=== PATIENT | female | born 2000 | race Caucasian/White ===

== ENCOUNTER → 2022-12-29 09:25 | Outpatient (CLI) | payer OTHER, SELFPAY ==
[2022-12-29 10:30] LABS: Alanine Aminotransferase 17 IU/L (<35); Albumin 4.1 g/dL (3.5-5.0); Albumin Globulin Ratio 1.4 (1.0-2.8); Alkaline Phosphatase 45 U/L (38-126); Aspartate Aminotransferase 23 IU/L (14-36); BUN Creatinine Ratio 24.2 (6-22); Bilirubin Total 0.5 mg/dL (0.2-1.3); Blood Urea Nitrogen 15 mg/dL (7-17); Calcium 9.2 mg/dL (8.4-10.2); Carbon Dioxide 26 mmol/L (22-32); Chloride 104 mmol/L (98-107); Estimated Glomerular Filt Rate > 60 mL/min (>60); Globulin 2.9 g/dL (1.7-4.1); Glucose 88 mg/dL (70-100); HEMOLYSIS < 15 (0-50); Potassium 4.1 mmol/L (3.4-5.1); Sodium 137 mmol/L (137-145)
[2022-12-29 10:58] LABS: TSH w/ Reflex to FT4 0.23 uIU/mL (0.47-4.68)
[2022-12-29 11:27] LABS: Free T4, Direct Thyroxine 1.04 ng/dL (0.78-2.19)
[2023-01-13 15:51] LABS: Percent Free Testosterone 0.99 % (0.50-2.80); Testosterone Free 0.24 ng/dL (0.10-0.85)
== END ==
PROVIDERS: PCP Family Medicine; Referring Provider Family Medicine; Visit Provider Family Medicine
DX: E66.3 Overweight (principal); F41.9 Anxiety disorder, unspecified; I49.9 Cardiac arrhythmia, unspecified
CPT/HCPCS: 36415; 80053; 84402; 84403; 84439; 84443

== ENCOUNTER → 2023-01-19 11:10 | Outpatient (CLI) | payer OTHER, SELFPAY ==
[2023-01-19 11:54] LABS: Add Manual Diff / Slide Review NO; Basophils Absolute Auto 0 /uL (0-100); Basophils Percent Auto 0.5 % (0-2); Eosinophils Absolute Auto 200 /uL (0-450); Hematocrit 40.9 % (36-46); Hemoglobin 13.9 g/dL (12.0-16.0); Lymphocytes Absolute Auto 1700 /uL (1100-4500); Lymphocytes Percent Auto 20.5 % (25-40); Mean Corpuscular Volume 91.1 fL (80-100); Monocytes Absolute Auto 600 /uL (0-900); Monocytes Percent Auto 7.2 % (3-14); Neutrophils Absolute Auto 5800 /uL (1500-7000); Neutrophils Percent Auto 69.8 % (50-75); Platelet Count 362 X10^3/uL (150-400); Red Cell Distribution Width 12.5 % (11.6-14.8); White Blood Cell Count 8.4 X10^3/uL (4.5-11.0)
[2023-01-19 13:43] LABS: Vitamin B12 715 pg/mL (239-931)
[2023-01-19 16:33] LABS: Vitamin D 25 Hydroxy (D3) 32.2 ng/mL (30.0-100.0)
== END ==
PROVIDERS: PCP Family Medicine; Referring Provider Family Medicine; Visit Provider Family Medicine
DX: R53.83 Other fatigue (principal)
CPT/HCPCS: 36415; 82306; 82607; 85025

== ENCOUNTER 2023-05-29 13:51 | Emergency (ER) | payer OTHER, SELFPAY ==
[2023-05-29 13:53] VITALS: BP 143/91; PULSE 67; RESP 16; TEMP 36.9; O2SAT 97; BMI 26.6
--- NOTE | 2023-05-29 13:58 | DI.RAD.S_ITS ---
PROCEDURE: XR FOREARM RT 2V INDICATIONS: fall, hit elbow on rock, swelling/pain TECHNIQUE: 2 views of the forearm were acquired. COMPARISON: [facility], CR, XR ELBOW RT MIN 3V, 05/29/2023, 14:10. FINDINGS: Bones: No fractures or dislocations. No suspicious bony lesions. Soft tissues: No suspicious soft tissue calcifications or masses. IMPRESSION: Normal plain films. Dictated by: Carlos West M.D. on 05/29/2023 at 13:24 Approved by: Carlos West M.D. on 05/29/2023 at 13:24
--- NOTE | 2023-05-29 13:58 | DI.RAD.S_ITS ---
PROCEDURE: XR ELBOW RT MIN 3V INDICATIONS: fall, hit elbow on rock, swelling/pain TECHNIQUE: 3 views of the elbow were acquired. COMPARISON: [facility], CR, XR FOREARM RT 2V, 05/29/2023, 14:10. FINDINGS: Bones: No fractures or dislocations. No suspicious bony lesions. Soft tissues: No elbow joint effusion. No suspicious soft tissue calcifications. IMPRESSION: Elbow plain film study within normal limits. Dictated by: Carlos West M.D. on 05/29/2023 at 13:25 Approved by: Carlos West M.D. on 05/29/2023 at 13:25
--- NOTE | 2023-05-29 14:31 | ED_ITS ---
HPI - Fall General Chief Complaint: Fall Stated Complaint: R/ELBOW possibly broken Time Seen by Provider: 05/29/23 14:28 History of Present Illness HPI Narrative: 23-year-old female presents for evaluation of right elbow pain. Patient was hiking when she tripped and fell, and she landed on her right elbow on a rock. Reports pain to the posterior aspect of her right elbow and stinging sensation that shoots from her elbow down to her hand. No medications taken prior to arrival. Patient states that she is up-to-date on her tetanus shot. Related Data Home Medications Medication Instructions Recorded Confirmed aripiprazole 5 mg tablet (Abilify) 2.5 mg PO DAILY 11/24/22 01/19/23 gabapentin 400 mg capsule 400 mg PO .qd PRN 12/29/22 01/19/23 lorazepam 0.5 mg tablet 0.5 mg PO PRN anxiety 12/29/22 01/19/23 propranolol 20 mg tablet 40 mg PO .QD 12/29/22 01/19/23 Allergies Allergy/AdvReac Type Severity Reaction Status Date / Time bupropion [From Wellbutrin] Allergy Severe nervous Verified 01/19/23 10:26 break down Review of Systems Review of Systems Narrative: All others negative except as marked Musculoskeletal Comments: Reports: Right elbow pain, right elbow swelling Integumentary/Breasts Comments: Reports: Abrasion, right elbow Patient History Medical History (Updated 05/29/23 @ 14:33 by Jo Roy MD) Ankle fracture (~2004) Anxiety (~2014) Bipolar 1 disorder Cardiac arrhythmia Chicken pox Concussion Depression GERD (gastroesophageal reflux disease) Heavy menstrual period Scoliosis Shingles (~2005) Wears glasses Surgical History (Updated 08/25/21 @ 11:46 by Griffin Dahl MD) Anesthesia History of cardiac radiofrequency ablation Family History (Updated 08/23/21 @ 22:11 by Adela Kothari) Father History of heart disease Mental health problem Mother History of heart disease Hypertension Mental health problem Sister Overdose Grandfather History of heart disease Grandmother History of heart disease Grandfather Diabetes mellitus History of heart disease Hyperlipidemia Hypertension Grandmother History of heart disease Social History Smoking Status: Never smoker Smoking Status: Never smoker Exam Initial Vital Signs Initial Vital Signs: Vital Signs Temperature 98.4 F 05/29/23 13:53 Pulse Rate 67 05/29/23 13:53 Respiratory Rate 16 05/29/23 13:53 Blood Pressure 143/91 H 05/29/23 13:53 Pulse Oximetry 97 05/29/23 13:53 Oxygen Delivery Method Room Air 05/29/23 13:53 Const: Well-nourished, Well-developed, appears stated age Eyes: PERRL, EOMI, conjunctiva normal ENT: Atraumatic, dentition normal, mucous membranes moist Cardiac: regular rate, regular rhythm RESP: unlabored, clear bilaterally, no wheezing GI: Atraumatic, soft, nontender, nondistended, no rebound, no guarding MSK: Contusion posterior elbow, minimal swelling, tenderness over the right olecranon, full range of motion, pulses intact, 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 She does have a contusion to her forearm/posterior elbow, however radiographs show no acute fracture. 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 Patient was counseled on rice instructions. ED return precautions discussed at bedside. Patient expressed understanding of the plan and is in agreement at this time. All questions answered at the time of discharge. Orders Ordered: ED Orders 05/29/23 13:58 XR elbow RT min 3V Stat XR forearm RT 2V Stat Vital Signs Vital signs: Vital Signs - 8 hr 05/29/23 13:53 Temperature 98.4 F Pulse Rate 67 Respiratory Rate 16 Blood Pressure 143/91 H Pulse Oximetry 97 Oxygen Delivery Method Room Air Discharge Plan Departure Patient Disposition: Home Clinical Impression: Contusion of elbow and forearm Instructions: DI for Contusion Activity Restrictions/Additional Instructions: APPLY ICE TO YOUR ELBOW AND FOREARM, THIS WILL HELP THE BRUISING AND SWELLING. TAKE TYLENOL AND MOTRIN NEEDED FOR PAIN. ELEVATING YOUR FOREARM AND ELBOW WILL ALSO HELP WITH THE SWELLING. Prescriptions: No Action aripiprazole [Abilify] 5 mg tablet 2.5 mg PO DAILY gabapentin 400 mg capsule 400 mg PO .qd PRN lorazepam 0.5 mg tablet 0.5 mg PO PRN (Reason: anxiety) Patient Comments: Take 1/2 to 1 tablet by mouth once a day as needed for severe anxiety propranolol 20 mg tablet 40 mg PO .QD Referrals: Griffin Dahl MD [Primary Care Provider] - Stand Alone Forms: Patient Portal/API
== END 2023-05-29 14:36 | disposition home or self-care (01) ==
PROVIDERS: Emergency Provider Emergency Medicine; PCP Family Medicine
DX: S50.11XA Contusion of right forearm, initial encounter (principal); W01.198A Fall on same level from slipping, tripping and stumbling with subsequent striking against other object, initial encounter
CPT/HCPCS: 73080; 73090; 99283

== ENCOUNTER → 2023-06-02 14:03 | Outpatient (CLI) | payer OTHER, SELFPAY ==
[2023-06-03 20:07] LABS: Deamidated Gliadin Ab IgA 6 units (0-19); Deamidated Gliadin Ab IgG 1 units (0-19); Immunoglobulin A,Qn 312 mg/dL (87-352); t-Transglutaminase IgA <2 U/mL (0-3)
== END ==
PROVIDERS: PCP Family Medicine; Referring Provider Family Medicine; Visit Provider Family Medicine
DX: K90.41 Non-celiac gluten sensitivity (principal); R14.0 Abdominal distension (gaseous); R53.83 Other fatigue
CPT/HCPCS: 36415; 82784; 83516; 86003

== ENCOUNTER → 2023-07-08 08:45 | Outpatient (CLI) | payer OTHER, SELFPAY | PROVIDERS: PCP Family Medicine; Referring Provider Family Medicine; Visit Provider Family Medicine | DX: Z23 Encounter for immunization (principal) | CPT/HCPCS: 90471; 90686 ==

== ENCOUNTER → 2023-09-23 13:53 | Outpatient (CLI) | payer OTHER, SELFPAY ==
[2023-09-23 14:24] LABS: Add Manual Diff / Slide Review NO; Basophils Absolute Auto 100 /uL (0-100); Basophils Percent Auto 0.8 % (0-2); Eosinophils Absolute Auto 300 /uL (0-450); Eosinophils Percent Auto 3.8 % (2-4); Hematocrit 38.4 % (36-46); Hemoglobin 13.2 g/dL (12.0-16.0); Lymphocytes Absolute Auto 2100 /uL (1100-4500); Lymphocytes Percent Auto 28.4 % (25-40); Mean Corpuscular HGB Conc 34.3 % (30-36); Mean Corpuscular Hemoglobin 31.3 PG (26-34); Mean Corpuscular Volume 91.4 fL (80-100); Monocytes Absolute Auto 500 /uL (0-900); Monocytes Percent Auto 6.4 % (3-14); Neutrophils Absolute Auto 4500 /uL (1500-7000); Neutrophils Percent Auto 60.6 % (50-75); Platelet Count 399 X10^3/uL (150-400); Red Cell Distribution Width 12.4 % (11.6-14.8); White Blood Cell Count 7.4 X10^3/uL (4.5-11.0)
[2023-09-23 14:43] LABS: Alanine Aminotransferase 16 IU/L (<35); Albumin 4.2 g/dL (3.5-5.0); Albumin Globulin Ratio 1.3 (1.0-2.8); Alkaline Phosphatase 47 U/L (38-126); Aspartate Aminotransferase 25 IU/L (14-36); BUN Creatinine Ratio 22.2 (6-22); Bilirubin Total 0.3 mg/dL (0.2-1.3); Blood Urea Nitrogen 16 mg/dL (7-17); Calcium 9.8 mg/dL (8.4-10.2); Carbon Dioxide 27 mmol/L (22-32); Chloride 101 mmol/L (98-107); Estimated Glomerular Filt Rate > 60 mL/min (>60); Globulin 3.2 g/dL (1.7-4.1); Glucose 84 mg/dL (70-100); HEMOLYSIS < 15 (0-50); Potassium 3.9 mmol/L (3.4-5.1); Sodium 136 mmol/L (137-145); Total Protein 7.4 g/dL (6.3-8.2)
[2023-09-23 14:59] LABS: Prolactin 9.6 ng/mL (3.0-18.6)
[2023-09-23 15:13] LABS: TSH w/ Reflex to FT4 1.43 uIU/mL (0.47-4.68)
[2023-09-23 15:26] LABS: Follicle Stimulating Hormone 4.43 mIU/mL; Luteinizing Hormone 5.61 mIU/mL
== END ==
PROVIDERS: PCP Family Medicine; Referring Provider Family Medicine; Visit Provider Family Medicine
DX: N92.0 Excessive and frequent menstruation with regular cycle (principal)
CPT/HCPCS: 36415; 80053; 83001; 83002; 84146; 84443; 85025

== ENCOUNTER → 2023-10-01 15:57 | Outpatient (CLI) | payer OTHER, SELFPAY ==
--- NOTE | 2023-10-01 16:01 | DI.RAD.S_ITS ---
PROCEDURE: XR FOOT RT MIN 3V INDICATIONS: Right foot injury-1st metatarsal TECHNIQUE: 3 views of the foot were acquired. COMPARISON: None. FINDINGS: Bones: In this patient with this given history, scrutiny is given to 1st metatarsal. No fractures or dislocations can be seen at this site. No fractures or dislocations are seen elsewhere. No suspicious bony lesions. Soft tissues: No tibiotalar joint effusion. Achilles tendon appears normal. IMPRESSION: No displaced fractures are seen on these plain films. If there is focal tenderness, or other clinical concern for a fracture not seen on these images in this patient with a given history of trauma, please consider a dedicated CT or a short-term followup plain film series (in 1-2 weeks) for further evaluation. Dictated by: Carlos West M.D. on 10/01/2023 at 15:26 Approved by: Carlos West M.D. on 10/01/2023 at 15:27
== END ==
LOC: DI 16:00
PROVIDERS: PCP Family Medicine; Referring Provider Registered Nurse; Visit Provider Registered Nurse
DX: M79.671 Pain in right foot (principal)
CPT/HCPCS: 73630

== ENCOUNTER 2024-01-04 14:52 | Emergency (ER) | payer OTHER, SELFPAY ==
[2024-01-04] VITALS (7 sets, daily range): BP systolic 112–136; BP diastolic 66–73; PULSE 73–97; RESP 18; TEMP 36.8; O2SAT 97–100; BMI 26.6
[2024-01-04 17:32] LABS: Bacteria Urine None Seen; Culture Indicated Urine Cult Not Indicated; RBC Urine None Seen (0-5/HPF); Squamous Epithelial Cell Urine 0-1 /HPF (0-5/HPF); Urine Volume 10mL (spun); WBC Urine None Seen (0-5/HPF)
[2024-01-04 18:22] LABS: Hematocrit 36.9 % (36-46); Hemoglobin 12.4 g/dL (12.0-16.0); Mean Corpuscular HGB Conc 33.7 % (30-36); Mean Corpuscular Hemoglobin 30.2 PG (26-34); Mean Corpuscular Volume 89.6 fL (80-100); Platelet Count 348 X10^3/uL (150-400); Red Blood Cell Count 4.12 X10^6/uL (4.0-5.2); White Blood Cell Count 8.5 X10^3/uL (4.5-11.0)
[2024-01-04 18:23] LABS: Add Manual Diff / Slide Review YES
[2024-01-04 18:37] LABS: Alanine Aminotransferase 158 IU/L (<35); Albumin 4.3 g/dL (3.5-5.0); Albumin Globulin Ratio 1.2 (1.0-2.8); Alkaline Phosphatase 71 U/L (38-126); Aspartate Aminotransferase 125 IU/L (14-36); Bilirubin Total 0.5 mg/dL (0.2-1.3); Blood Urea Nitrogen 4 mg/dL (7-17); Calcium 9.4 mg/dL (8.4-10.2); Carbon Dioxide 25 mmol/L (22-32); Chloride 106 mmol/L (98-107); Estimated Glomerular Filt Rate > 60 mL/min (>60); Globulin 3.5 g/dL (1.7-4.1); Glucose 85 mg/dL (70-100); HEMOLYSIS < 15 (0-50); Lipase 52 U/L (23-300); Potassium 3.5 mmol/L (3.4-5.1); Sodium 137 mmol/L (137-145); Total Protein 7.8 g/dL (6.3-8.2)
--- NOTE | 2024-01-04 18:41 | DI.US.S_ITS ---
PROCEDURE: US ABDOMEN LIMITED INDICATIONS: RUQ pain eval for GB pathology TECHNIQUE: Real-time focused scanning was performed of the abdomen, with image documentation. COMPARISON: [facility], CT, CT ABDOMEN PELVIS WITH CONTRAST, 08/04/2021, 13:01. FINDINGS: Liver measures 13.7 cm. Gallbladder demonstrates no stones. Wall thickness measures 1 mm. Common bile duct measures 3.5 mm. IMPRESSION: Unremarkable. Dictated by: Cindy Saldaña M.D. on 01/04/2024 at 19:49 Approved by: Cindy Saldaña M.D. on 01/04/2024 at 19:50
[2024-01-04 18:42] LABS: Neutrophils Absolute Manual 2040 /uL (3000-5900); Reactive Lymphocytes 1+; Total Cells Counted 100
--- NOTE | 2024-01-04 18:48 | ED.GENADULT ---
HPI - General Adult General Chief complaint: Abdominal Pain Stated complaint: liver pain w elevated enzymes/mono. Time Seen by Provider: 01/04/24 17:21 Source: patient Mode of arrival: Ambulatory History of Present Illness HPI narrative: Patient is a 23-year-old female. Was diagnosed with mono within the past 1-2 days however she has had symptoms consistent with a mild over the past couple weeks. She was here today for right upper quadrant abdominal pain. She was seen recently at walk-in clinic. Had labs drawn. Was shown the had an elevation in her LFTs and because of the discomfort that she is having she was sent to the emergency department for further evaluation. Is having quite a bit of fatigue, occasional fevers, nausea, no change in bowel habits or urinary symptoms. Related Data Home Medications Medication Instructions Recorded Confirmed aripiprazole 5 mg tablet (Abilify) 2.5 mg PO DAILY 11/24/22 01/02/24 gabapentin 400 mg capsule 400 mg PO .qd PRN 12/29/22 01/02/24 propranolol 20 mg tablet 40 mg PO .QD 12/29/22 01/02/24 Previous Rx's Medication Instructions Recorded ondansetron 4 mg disintegrating 4 mg PO Q8H #30 tabs 09/21/23 tablet Allergies Allergy/AdvReac Type Severity Reaction Status Date / Time No Known Drug Allergies Allergy Verified 01/02/24 18:39 Review of Systems Review of Systems ROS Unobtainable: All systems reviewed & are unremarkable except as noted in HPI and below Patient History Medical History Bipolar 1 disorder Wears glasses Ankle fracture (~2004) Concussion Scoliosis Shingles (~2005) Chicken pox Heavy menstrual period GERD (gastroesophageal reflux disease) Cardiac arrhythmia Surgical History Anesthesia History of cardiac radiofrequency ablation Family History Father History of heart disease Mental health problem Mother History of heart disease Hypertension Mental health problem Sister Overdose Grandfather History of heart disease Grandmother History of heart disease Grandfather Diabetes mellitus History of heart disease Hyperlipidemia Hypertension Grandmother History of heart disease Social History Smoking Status: Never smoker Smoking Status: Never smoker alcohol intake frequency: holidays/special occasions only Substance Use Type: does not use Exam Initial Vital Signs Initial Vital Signs: Vital Signs Temperature 98.3 F 01/04/24 15:12 Pulse Rate 97 H 01/04/24 15:12 Respiratory Rate 18 01/04/24 15:12 Blood Pressure 136/72 01/04/24 15:12 Pulse Oximetry 98 01/04/24 15:12 Oxygen Delivery Method Room Air 01/04/24 15:12 Resp Effort & Inspection: normal respiratory effort Cardio Rate: regular rate GI Inspection: normal to inspection and non-distended Palpation: soft, No firm, No guarding and tender (Right upper quadrant negative Simpson's sign) Skin General: no rashes or lesions noted Neuro General: patient alert and patient awake Course Orders Ordered: ED Orders 01/04/24 16:14 Urine Microscopic Stat 01/04/24 18:06 Complete Blood Count AUTO DIFF Stat Comprehensive Metabolic Panel Stat Lipase Stat 01/04/24 18:41 US abdomen limited Stat Discontinued Medications Ketorolac Tromethamine (Ketorolac 30 Mg/Ml Vial) 30 mg IV NOW ONE Stop: 01/04/24 19:50 Last Admin: 01/04/24 19:53 Dose: 30 mg Documented By: HELENA Ondansetron HCl (Ondansetron 4 Mg Odt) 4 mg PO NOW PRN PRN Reason: Nausea And Vomiting Ondansetron HCl (Ondansetron 4 Mg/2 Ml Inj) 4 mg IV NOW PRN PRN Reason: Nausea And Vomiting Vital Signs Vital signs: Vital Signs - 8 hr 01/04/24 18:09 01/04/24 18:10 01/04/24 18:10 Pulse Rate 78 Blood Pressure 113/73 Pulse Oximetry 100 98 01/04/24 18:30 01/04/24 18:31 01/04/24 18:31 Pulse Rate 77 73 Blood Pressure 112/66 Pulse Oximetry 98 97 01/04/24 19:00 01/04/24 19:00 01/04/24 19:30 Pulse Rate 78 80 Blood Pressure 112/72 Pulse Oximetry 98 97 01/04/24 19:30 Pulse Rate Blood Pressure 114/69 Pulse Oximetry Medical Decision Making Lab Data Lab results reviewed: Yes I reviewed the patient's lab results. 01/04/24 18:06 01/04/24 18:06 Labs: Lab Results 01/04/24 01/04/24 Range/Units 16:14 18:06 WBC 8.5 (4.5-11.0) X10^3/uL RBC 4.12 (4.0-5.2) X10^6/uL Hgb 12.4 (12.0-16.0) g/dL Hct 36.9 (36-46) % MCV 89.6 (80-100) fL MCH 30.2 (26-34) PG MCHC 33.7 (30-36) % RDW 13.0 (11.6-14.8) % Plt Count 348 (150-400) X10^3/uL Neut % (Auto) Not Reportable Lymph % (Auto) Not Reportable Mayes % (Auto) Not Reportable Eos % (Auto) Not Reportable Baso % (Auto) Not Reportable Lymph # (Auto) Not Reportable Mayes # (Auto) Not Reportable Baso # (Auto) Not Reportable Total Counted 100 Seg Neutrophils % 24.0 L (38-70) % Lymphocytes % (Manual) 70.0 H (25-45) % Monocytes % (Manual) 4.0 (2-11) % Eosinophils % (Manual) 1.0 L (2-4) % Basophils % (Manual) 1.0 (0-1) % Neutrophils # (Manual) 2040 L (7332-4682) /uL Reactive Lymphocytes 1+ H RBC Morphology See below Sodium 137 (137-145) mmol/L Potassium 3.5 (3.4-5.1) mmol/L Chloride 106 (98-107) mmol/L Carbon Dioxide 25 (22-32) mmol/L BUN 4 L (7-17) mg/dL Creatinine 0.57 (0.52-1.04) mg/dL Estimated GFR > 60 (>60) mL/min BUN/Creatinine Ratio 7.0 (6-22) Glucose 85 (70-100) mg/dL Calcium 9.4 (8.4-10.2) mg/dL Total Bilirubin 0.5 (0.2-1.3) mg/dL AST 125 H (14-36) IU/L ALT 158 H (<35) IU/L Alkaline Phosphatase 71 (38-126) U/L Total Protein 7.8 (6.3-8.2) g/dL Albumin 4.3 (3.5-5.0) g/dL Globulin 3.5 (1.7-4.1) g/dL Albumin/Globulin Ratio 1.2 (1.0-2.8) Lipase 52 (23-300) U/L Urine RBC None seen (0-5/HPF) Urine WBC None seen (0-5/HPF) Ur Squamous Epith Cells 0-1 /hpf (0-5/HPF) Urine Bacteria None seen (None) Ur Culture Indicated? Cult not indicated Vol Urine Centrifuged 10ml (spun) Point of Care Testing Test Results Negative Urine Dip Bedside Urine Glucose Negative Bedside Urine Bilirubin - Negative Bedside Urine Ketone - Negative Urine Specific [place] 1.005 Bedside Urine Occult Blood +++ Bedside Urine pH 6.0 Bedside Urine Protein - Negative Bedside Urine Urobilinogen - Negative Bedside Urine Nitrite - Negative Bedside Urine Leukocytes - Negative Esterase Point of care testing: Point of Care Testing Test Results Negative Urine Dip Bedside Urine Glucose Negative Bedside Urine Bilirubin - Negative Bedside Urine Ketone - Negative Urine Specific [place] 1.005 Bedside Urine Occult Blood +++ Bedside Urine pH 6.0 Bedside Urine Protein - Negative Bedside Urine Urobilinogen - Negative Bedside Urine Nitrite - Negative Bedside Urine Leukocytes - Negative Esterase Imaging Data US - abdomen: Radiologist's Impression: PROCEDURE: US ABDOMEN LIMITED INDICATIONS: RUQ pain eval for GB pathology TECHNIQUE: Real-time focused scanning was performed of the abdomen, with image documentation. COMPARISON: [facility], CT, CT ABDOMEN PELVIS WITH CONTRAST, 08/04/2021, 13:01. FINDINGS: Liver measures 13.7 cm. Gallbladder demonstrates no stones. Wall thickness measures 1 mm. Common bile duct measures 3.5 mm. IMPRESSION: Unremarkable. [facility] Narrative Medical decision making narrative: Patient does have a benign abdominal exam. She does not have splenomegaly on my exam. Has a slight elevation in her LFTs but a normal lipase. Right upper quadrant ultrasound shows no signs of gallbladder pathology. Provided reassurance to the patient. Informed her that she needs to contact her primary doctor for a follow-up to discuss retesting these enzymes for trending. Patient can be safely discharged home. No indication for admission to the hospital. Discharge Plan Departure Patient Disposition: Home Clinical Impression: Transaminitis Activity Restrictions/Additional Instructions: Continue to take Tylenol for any fevers or body aches. You do need follow-up with your primary care doctor for repeat lab tests in a couple weeks from now. Return to the emergency department for new symptoms. Prescriptions: No Action ondansetron 4 mg tablet,disintegrating 4 mg PO Q8H Qty: 30 1RF aripiprazole [Abilify] 5 mg tablet 2.5 mg PO DAILY gabapentin 400 mg capsule 400 mg PO .qd PRN propranolol 20 mg tablet 40 mg PO .QD Referrals: Delaney Nguyen MD [Primary Care Provider] - Stand Alone Forms: Patient Portal/API
[2024-01-04] MEDS: KETOROLAC 30 MG/ML VIAL IV (19:53)
== END 2024-01-04 20:23 | disposition home or self-care (01) ==
PROVIDERS: Emergency Medicine; Emergency Provider Emergency Medicine; PCP Family Medicine
DX: R74.01 Elevation of levels of liver transaminase levels (principal)
CPT/HCPCS: 36415; 76705; 80053; 81003; 81015; 81025; 83690; 85007; 85025; 96374; 99284; J1885

== ENCOUNTER → 2024-07-02 | Outpatient (CLI) | payer OTHER, SELFPAY | PROVIDERS: PCP Family Medicine; Referring Provider Internal Medicine; Visit Provider Internal Medicine | DX: Z23 Encounter for immunization (principal) | CPT/HCPCS: 90471; 90656 ==

== ENCOUNTER → 2024-10-26 08:09 | Outpatient (CLI) | payer OTHER, SELFPAY ==
--- NOTE | 2024-10-26 08:10 | DI.MRI.S_ITS ---
PROCEDURE: MR HEAD/BRAIN WO CON INDICATIONS: Memory loss TECHNIQUE: Noncontrast axial T1 spin echo, axial T2 fast spin echo, sagittal and axial FLAIR, coronal T2 fast spin echo, axial gradient echo, axial diffusion and ADC through the brain. COMPARISON: None. FINDINGS: Image quality: Excellent. CSF Spaces: Basal cisterns are patent. No extra-axial fluid collections. Ventricles are normal in size and shape. Brain: No intracranial masses or hemorrhage. Elizabeth/white matter interface is normal. Brainstem appears normal. Diffusion-weighted images demonstrate no acute infarct. No chronic ischemic insults. Normal intravascular flow voids are present. Skull and face: Calvarium has normal marrow signal. Orbits appear normal. Sinuses: Sinuses and mastoids are clear. IMPRESSION: No cause for patient's symptoms identified. Normal appearance of the brain. Dictated by: Nathan Grant M.D. on 10/26/2024 at 15:43 Approved by: Nathan Grant M.D. on 10/26/2024 at 15:50
[2024-10-26 09:49] LABS: Add Manual Diff / Slide Review NO; Basophils Absolute Auto 100 /uL (0-100); Basophils Percent Auto 0.6 % (0-2); Eosinophils Absolute Auto 200 /uL (0-450); Eosinophils Percent Auto 2.5 % (2-4); Hematocrit 38.9 % (36-46); Hemoglobin 13.1 g/dL (12.0-16.0); Lymphocytes Absolute Auto 2100 /uL (1100-4500); Lymphocytes Percent Auto 21.2 % (25-40); Mean Corpuscular HGB Conc 33.6 % (30-36); Mean Corpuscular Hemoglobin 30.7 PG (26-34); Mean Corpuscular Volume 91.2 fL (80-100); Monocytes Absolute Auto 400 /uL (0-900); Monocytes Percent Auto 4.2 % (3-14); Neutrophils Absolute Auto 7000 /uL (1500-7000); Neutrophils Percent Auto 71.5 % (50-75); Platelet Count 377 X10^3/uL (150-400); Red Blood Cell Count 4.27 X10^6/uL (4.0-5.2); Red Cell Distribution Width 12.9 % (11.6-14.8); White Blood Cell Count 9.7 X10^3/uL (4.5-11.0)
[2024-10-26 10:03] LABS: Alanine Aminotransferase 26 IU/L (<35); Albumin 4.5 g/dL (3.5-5.0); Albumin Globulin Ratio 1.7 (1.0-2.8); Alkaline Phosphatase 62 U/L (38-126); Aspartate Aminotransferase 31 IU/L (14-36); BUN Creatinine Ratio 12.7 (6-22); Bilirubin Total 0.3 mg/dL (0.2-1.3); Blood Urea Nitrogen 10 mg/dL (7-17); Calcium 9.8 mg/dL (8.4-10.2); Carbon Dioxide 23 mmol/L (22-32); Chloride 106 mmol/L (98-107); Estimated Glomerular Filt Rate > 60 mL/min (>60); Globulin 2.6 g/dL (1.7-4.1); Glucose 79 mg/dL (70-100); HEMOLYSIS < 15 (0-50); Potassium 3.9 mmol/L (3.4-5.1); Sodium 137 mmol/L (137-145); Total Protein 7.1 g/dL (6.3-8.2)
[2024-10-26 10:33] LABS: TSH w/ Reflex to FT4 1.91 uIU/mL (0.47-4.68)
== END ==
PROVIDERS: PCP Family Medicine; Referring Provider Family Medicine; Visit Provider Family Medicine
DX: R41.3 Other amnesia (principal); N92.0 Excessive and frequent menstruation with regular cycle; I49.9 Cardiac arrhythmia, unspecified
CPT/HCPCS: 36415; 70551; 80053; 84443; 85025

== ENCOUNTER → 2024-12-21 10:47 | Outpatient (CLI) | payer OTHER, SELFPAY ==
[2024-12-23 14:11] LABS: Dilute Russell Viper Venom 32.6 sec (0.0-47.0); Lupus Reflex Interpretation Comment: (.); PTT-LA 34.6 sec (0.0-43.5)
[2024-12-24 16:11] LABS: B2-Glycoprotein I IgA AB < 9 (0-25); B2-Glycoprotein I IgG AB < 9 (0-20); B2-Glycoprotein I IgM AB < 9 (0-32)
[2024-12-24 16:36] LABS: Cardiolipin Ab IgA <9 APL U/mL (0-11); Cardiolipin Ab IgG <9 GPL U/mL (0-14); Cardiolipin Ab IgM <9 MPL U/mL (0-12)
== END ==
PROVIDERS: PCP Family Medicine; Referring Provider Nurse Practitioner Obstetrics & Gynecology; Visit Provider Nurse Practitioner Obstetrics & Gynecology
DX: N97.9 Female infertility, unspecified (principal); Z84.89 Family history of other specified conditions; Z13.9 Encounter for screening, unspecified
CPT/HCPCS: 36415; 85598; 85613; 86146; 86147

== ENCOUNTER → 2025-03-14 16:51 | Outpatient (CLI) | payer OTHER, SELFPAY ==
[2025-03-14 17:53] LABS: Add Manual Diff / Slide Review NO; Basophils Absolute Auto 0 /uL (0-100); Basophils Percent Auto 0.6 % (0-2); Eosinophils Absolute Auto 200 /uL (0-450); Eosinophils Percent Auto 2.3 % (2-4); Hematocrit 39.3 % (36-46); Hemoglobin 13.2 g/dL (12.0-16.0); Lymphocytes Absolute Auto 2300 /uL (1100-4500); Lymphocytes Percent Auto 28.5 % (25-40); Mean Corpuscular HGB Conc 33.6 % (30-36); Mean Corpuscular Volume 89.1 fL (80-100); Monocytes Absolute Auto 500 /uL (0-900); Monocytes Percent Auto 6.1 % (3-14); Neutrophils Absolute Auto 5000 /uL (1500-7000); Neutrophils Percent Auto 62.5 % (50-75); Platelet Count 345 X10^3/uL (150-400); Red Blood Cell Count 4.41 X10^6/uL (4.0-5.2); Red Cell Distribution Width 12.5 % (11.6-14.8); White Blood Cell Count 7.9 X10^3/uL (4.5-11.0)
[2025-03-14 18:15] LABS: Alanine Aminotransferase 14 IU/L (<35); Albumin 4.5 g/dL (3.5-5.0); Albumin Globulin Ratio 1.8 (1.0-2.8); Alkaline Phosphatase 48 U/L (38-126); Aspartate Aminotransferase 29 IU/L (14-36); Bilirubin Total 0.5 mg/dL (0.2-1.3); Blood Urea Nitrogen 10 mg/dL (7-17); Calcium 9.6 mg/dL (8.4-10.2); Carbon Dioxide 23 mmol/L (22-32); Chloride 105 mmol/L (98-107); Estimated Glomerular Filt Rate > 60 mL/min (>60); Globulin 2.5 g/dL (1.7-4.1); Glucose 83 mg/dL (70-99); HEMOLYSIS 27 (0-50); Potassium 3.8 mmol/L (3.4-5.1); Sodium 136 mmol/L (137-145)
== END ==
PROVIDERS: PCP Family Medicine; Referring Provider Family Medicine; Visit Provider Nurse Practitioner Family
DX: I47.10 Supraventricular tachycardia, unspecified (principal)
CPT/HCPCS: 36415; 80053; 85025

== ENCOUNTER → 2025-03-20 17:14 | Outpatient (CLI) | payer OTHER, SELFPAY ==
[2025-03-20 17:45] LABS: Iron 143 ug/dL (37-170)
[2025-03-20 18:21] LABS: Ferritin 24 ng/mL (6-137)
[2025-03-25 12:36] LABS: ANA Screen, IFA Negative (.)
== END ==
PROVIDERS: PCP Family Medicine; Referring Provider Family Medicine; Visit Provider Family Medicine
DX: R55 Syncope and collapse (principal); R68.89 Other general symptoms and signs
CPT/HCPCS: 36415; 82728; 83540; 86038